=== PATIENT | female | born 1985 | race Hispanic/Latino ===

== ENCOUNTER 2017-11-24 16:27 | Emergency (ER) | payer OTHER ==
[2017-11-24] MEDS ORDERED: ULTRAM ONE (20:34)
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
[2017-11-24] MEDS ORDERED: FLEXERIL PO ONE (22:52)
[2017-11-24] MEDS ORDERED: MOTRIN PO ONE (22:52)
[2017-11-24 23:11] LABS: HCG Qualitative,Urine Negative (Negative)
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
[2017-11-25 01:02] VITALS: BP 127/80
== END 2017-11-25 01:01 | disposition home or self-care (01) ==
LOC: ED 16:27
DX: S16.1XXA Strain of muscle, fascia and tendon at neck level, initial encounter (principal); M54.5 Low back pain; V49.49XA Driver injured in collision with other motor vehicles in traffic accident, initial encounter; Y93.89 Activity, other specified; Y99.8 Other external cause status; Y92.411 Interstate highway as the place of occurrence of the external cause
CPT/HCPCS: 72125; 81025; 99284